=== PATIENT | female | born 1955 | race Caucasian/White ===

== ENCOUNTER 2022-04-19 13:46 | Outpatient (RCR) | payer MEDICARE, OTHER | END 2022-05-15 | LOC: PT 13:46 | PROVIDERS: ATTEND Specialist | DX: M72.2 Plantar fascial fibromatosis (principal) ==

== ENCOUNTER → 2022-06-15 | Outpatient (RCR) | payer MEDICARE, OTHER | LOC: PT 06-11 13:51 | PROVIDERS: ATTEND Specialist | DX: M72.2 Plantar fascial fibromatosis (principal); M62.81 Muscle weakness (generalized); R26.89 Other abnormalities of gait and mobility ==

== ENCOUNTER 2022-06-26 08:55 | Outpatient (RCR) | payer MEDICARE, OTHER | END 2022-07-15 | LOC: PT 08:55 | PROVIDERS: ATTEND Specialist | DX: M19.072 Primary osteoarthritis, left ankle and foot (principal); M19.071 Primary osteoarthritis, right ankle and foot ==